=== PATIENT | female | born 1965 | race Caucasian/White ===

== ENCOUNTER 2017-07-13 22:00 | Emergency (ER) | payer BC, MEDICARE ==
[2017-07-13] MEDS ORDERED: Ketorolac 60 MG/2 ML SDV IM ONE (23:16)
[2017-07-13] MEDS ORDERED: Amoxicillin 500 MG Cap PO ONE (23:46)
--- NOTE | 2017-07-13 23:52 | EDM.PDOC ---
ED HPI GENERAL MEDICAL PROBLEM - General Chief Complaint: ENT Problem Stated Complaint: TOOTHACHE Time Seen by Provider: 07/13/17 22:20 Source of Information: Reports: Patient History Limitations: Reports: No Limitations - History of Present Illness INITIAL COMMENTS - FREE TEXT/NARRATIVE: c/o tooth pain pt has had problems with tooth #20 for 17y and had surgery and fillings on it many times last saw dentist 2y ago, has dental insurance, just moved to area, works at [employer] has had pain for 2d, felt lightheaded on way to work this evening and came here works 3rd shift daughter is a nurse in [employer] no f/c/d increase swelling of cheek x 2d, not taken meds left upper tooth Pain Score (Numeric/FACES): 7 - Related Data Allergies Allergy/AdvReac Type Severity Reaction Status Date / Time No Known Allergies Allergy Verified 07/13/17 23:20 Home Meds: Home Meds Amoxicillin 500 mg PO TID #21 tab 07/13/17 [Rx] Memantine [Namenda] 50 mg PO DAILY 07/13/17 [History] Sertraline [Zoloft] 100 mg PO DAILY 07/13/17 [History] Past Medical History Neurological History: Reports: Other (See Below) Other Neuro History: patient takes memantine. Psychiatric History: Reports: Depression Social & Family History - Family History Family Medical History: Noncontributory - Tobacco Use Smoking Status *Q: Current Every Day Smoker Years of Tobacco use: 30 Packs/Tins Daily: 0.5 Used Tobacco, but Quit: Yes Month/Year Tobacco Last Used: yesterday - Caffeine Use Caffeine Use: Reports: Coffee, Soda - Alcohol Use Days Per Week of Alcohol Use: 2 Number of Drinks Per Day: 2 Total Drinks Per Week: 4 - Recreational Drug Use Recreational Drug Use: No ED ROS ENT - Review of Systems Review Of Systems: See Below Constitutional: Reports: No Symptoms HEENT: Reports: Dental Pain Respiratory: Reports: No Symptoms Endocrine: Reports: No Symptoms GI/Abdominal: Reports: No Symptoms : Reports: No Symptoms Musculoskeletal: Reports: No Symptoms Skin: Reports: No Symptoms Neurological: Reports: No Symptoms Psychiatric: Reports: No Symptoms Hematologic/Lymphatic: Reports: No Symptoms Immunologic: Reports: No Symptoms ED EXAM, ENT - Physical Exam Exam: See Below Exam Limited By: No Limitations General Appearance: Alert, WD/WN, Mild Distress Nose: Normal Inspection, Normal Mucousa, No Blood Mouth/Throat: Other (teeth #20 and 21 are both loose, filled cares, both sensitive to touch as is the adjacent gingiva, no red or swell of gingiva, mild swell of cheek, no LNs, teeth do not look like they can be salvaged, good 3 mm of motion apiece) Course - Vital Signs Last Recorded V/S: Last Vital Signs Temp 36.9 C 07/13/17 22:30 Pulse 68 07/13/17 22:30 Resp 18 07/13/17 22:30 BP 110/65 07/13/17 22:30 Pulse Ox 97 07/13/17 22:30 - Orders/Labs/Meds Orders: Active Orders 24 hr Category Date Time Status Amoxicillin [Amoxil] Med 07/13/17 23:46 Once 500 mg PO ONETIME ONE Meds: Medications Discontinued Medications Generic Name Dose Route Start Last Admin Trade Name Freq PRN Reason Stop Dose Admin Ketorolac Tromethamine 60 mg 07/13/17 23:16 07/13/17 23:24 Toradol IM 07/13/17 23:17 60 mg ONETIME ONE Administration Departure - Departure Time of Disposition: 23:51 Disposition: Home, Self-Care 01 Condition: Good Clinical Impression: Dental abscess, Loosening of tooth - Discharge Information Prescriptions: Amoxicillin 500 mg PO TID #21 tab Instructions: Dental Abscess Referrals: PCP,None [Primary Care Provider] - Forms: ED Department Discharge, ED Return to Work/School Form Additional Instructions: For infection, take amoxicillin 500 mg 1 tab 3 times a day for 7 days. For pain and inflammation, take ibuprofen 200 mg 3 tabs and acetaminophen 500 mg 2 tabs 4 times a day for several days. Eat and drink soft, cool food and liquids. Avoid chewing on the left side. See a dentist within the next week. Return to ED if you feel worse. No work tonight. - My Orders Last 24 Hours: My Active Orders 07/13/17 23:46 Amoxicillin [Amoxil] 500 mg PO ONETIME ONE - Assessment/Plan Last 24 Hours: My Active Orders 07/13/17 23:46 Amoxicillin [Amoxil] 500 mg PO ONETIME ONE
== END 2017-07-14 00:10 | disposition home or self-care (01) ==
LOC: FB.ED 22:00
DX: K04.7 Periapical abscess without sinus (principal); F17.210 Nicotine dependence, cigarettes, uncomplicated
CPT/HCPCS: 96372; 99282; A9270; J1885

== ENCOUNTER 2017-11-01 03:42 | Emergency (ER) | payer BC ==
--- NOTE | 2017-11-01 04:12 | EDM.PDOC ---
ED HPI GENERAL MEDICAL PROBLEM - General Chief Complaint: General Stated Complaint: Chills, Diarrhea, Headache Time Seen by Provider: 11/01/17 04:00 Source of Information: Reports: Patient History Limitations: Reports: No Limitations - History of Present Illness INITIAL COMMENTS - FREE TEXT/NARRATIVE: Maria Elena is employed at [employer] and experienced some chills, malaise, and an episode of diarrhea about an hour ago. There was no reported BRB or mucous in the stool. She still feels weak, and was advised to come to the ED for medical evaluation. There is no fever, sweats, nausea or vomiting, and no further diarrhea. She had store bought bow tie salad and some chicken during breaks overnight. There is no other reported exposure. - Related Data Allergies Allergy/AdvReac Type Severity Reaction Status Date / Time .Pain medication Allergy Nausea Uncoded 11/01/17 04:00 Home Meds: Home Meds Sertraline [Zoloft] 100 mg PO DAILY 07/13/17 [History] Terbinafine HCl [Terbinafine] 250 mg PO DAILY 11/01/17 [History] Past Medical History Neurological History: Reports: Other (See Below) Other Neuro History: patient takes memantine. Psychiatric History: Reports: Depression Social & Family History - Family History Family Medical History: Noncontributory - Tobacco Use Smoking Status *Q: Current Every Day Smoker Years of Tobacco use: 35 Packs/Tins Daily: 1 - Caffeine Use Caffeine Use: Reports: Coffee, Soda - Alcohol Use Days Per Week of Alcohol Use: 3 Number of Drinks Per Day: 4 Total Drinks Per Week: 12 - Recreational Drug Use Recreational Drug Use: No Other Recreational Drug Type: Patient denies recreational drug use. ED ROS GENERAL - Review of Systems Review Of Systems: See Below Constitutional: Reports: Malaise, Weakness, Decreased Appetite HEENT: Reports: No Symptoms Respiratory: Reports: No Symptoms Cardiovascular: Reports: No Symptoms Endocrine: Reports: No Symptoms GI/Abdominal: Reports: Diarrhea : Reports: No Symptoms Musculoskeletal: Reports: No Symptoms Skin: Reports: No Symptoms Neurological: Reports: Weakness Psychiatric: Reports: No Symptoms Hematologic/Lymphatic: Reports: No Symptoms Immunologic: Reports: No Symptoms ED EXAM, GENERAL - Physical Exam Exam: See Below Exam Limited By: No Limitations General Appearance: Alert, WD/WN, No Apparent Distress Eye Exam: Bilateral Eye: EOMI, Normal Inspection, PERRL Ears: Normal External Exam Nose: Normal Inspection Throat/Mouth: Normal Inspection, Normal Oropharynx, Normal Voice Head: Normocephalic Neck: Normal Inspection, Supple, Non-Tender Respiratory/Chest: Lungs Clear, Normal Breath Sounds, Chest Non-Tender Cardiovascular: Regular Rate, Rhythm, No Murmur GI/Abdominal: Normal Bowel Sounds, Soft, Non-Tender, No Organomegaly, No Distention, No Mass (Female) Exam: Deferred Rectal (Female) Exam: Deferred Back Exam: Normal Inspection Extremities: Normal Inspection Neurological: Alert, Oriented, CN II-XII Intact, Normal Cognition, Normal Gait, No Motor/Sensory Deficits, Sensory/Motor Deficit Psychiatric: Normal Affect Skin Exam: Warm, Dry, Intact, Normal Color, No Rash Lymphatic: No Adenopathy Course - Vital Signs Text/Narrative:: Maria Elena remained stable at the [facility] ED. The CBC was WNL. Last Recorded V/S: Last Vital Signs Temp 36.7 C 11/01/17 03:45 Pulse 73 11/01/17 03:45 Resp 18 11/01/17 03:45 BP 102/64 11/01/17 03:45 Pulse Ox 98 11/01/17 03:45 - Orders/Labs/Meds Labs: Laboratory Tests 11/01/17 Range/Units 04:20 WBC 8.4 (4.5-12.0) X10-3/uL RBC 3.51 (3.23-5.20) x10(6)uL Hgb 12.0 (11.5-15.5) g/dL Hct 34.6 (30.0-51.3) % MCV 98.7 H (80-96) fL MCH 34.2 H (27.7-33.6) pg MCHC 34.6 (32.2-35.4) g/dL RDW 12.5 (11.5-15.5) % Plt Count 207 (125-369) X10(3)uL MPV 8.3 (7.4-10.4) fL Neut % (Auto) 54.8 (46-82) % Lymph % (Auto) 33.2 (13-37) % [place] % (Auto) 7.5 (4-12) % Eos % (Auto) 4 (1.0-5.0) % Baso % (Auto) 1 (0-2) % Neut # (Auto) 4.6 (1.6-8.3) # Lymph # (Auto) 2.8 (0.6-5.0) # [place] # (Auto) 0.6 (0.0-1.3) # Eos # (Auto) 0.3 (0.0-0.8) # Baso # (Auto) 0.1 (0.0-0.2) # Departure - Departure Time of Disposition: 04:47 Disposition: Home, Self-Care 01 Condition: Fair Clinical Impression: Gastroenteritis - Discharge Information *PRESCRIPTION DRUG MONITORING PROGRAM REVIEWED*: Not Applicable *COPY OF PRESCRIPTION DRUG MONITORING REPORT IN PATIENT MAYDA: Not Applicable Referrals: PCP,None [Primary Care Provider] - Forms: ED Department Discharge - Problem List & Annotations (1) Gastroenteritis SNOMED Code(s): 09967431 Code(s): K52.9 - NONINFECTIVE GASTROENTERITIS AND COLITIS, UNSPECIFIED Status: Acute Current Visit: Yes Annotation/Comment:: Monitor temps, hydration, and sxs cares. A note for employer was provided. - Problem List Review Problem List Initiated/Reviewed/Updated: Yes - Assessment/Plan Plan: Follow up with PCP if needed.
== END 2017-11-01 05:00 | disposition home or self-care (01) ==
LOC: FB.ED 03:42
DX: K52.9 Noninfective gastroenteritis and colitis, unspecified (principal); F17.210 Nicotine dependence, cigarettes, uncomplicated; Z79.899 Other long term (current) drug therapy
CPT/HCPCS: 36415; 85025; 99283

== ENCOUNTER 2018-10-03 18:12 | Emergency (ER) | payer BC ==
--- NOTE | 2018-10-03 19:16 | EDM.PDOC ---
ED HPI GENERAL MEDICAL PROBLEM - General Chief Complaint: Skin Complaint Stated Complaint: INFLAMATION OF R HAND Time Seen by Provider: 10/03/18 18:45 - History of Present Illness INITIAL COMMENTS - FREE TEXT/NARRATIVE: patient here with concern for possible wrist infection. She has been following with a hand surgeon in [place] after carpal tunnel surgery, with subsequent development of infection and requiring a washout and IV antibiotics. She has had increasing pain and swelling today and is wondering what to do. No fever, chills, sweats, although occasionally feeling flushed. Appointment with her surgeon on . right wrist Pain Score (Numeric/FACES): 6 - Related Data Allergies Allergy/AdvReac Type Severity Reaction Status Date / Time .Pain medication Allergy Nausea Uncoded 11/01/17 04:00 Home Meds: Home Meds Sertraline [Zoloft] 100 mg PO DAILY 07/13/17 [History] Terbinafine HCl [Terbinafine] 250 mg PO DAILY 11/01/17 [History] Past Medical History Respiratory History: Reports: Other (See Below) Other Respiratory History: States she has a chronic cough and seasonal hayfever. Neurological History: Reports: Other (See Below) Other Neuro History: patient takes memantine. Psychiatric History: Reports: Depression Dermatologic History: Reports: Other (See Below) Other Dermatologic History: Takes medication for toe fungus. - Past Surgical History Neurological Surgical History: Reports: Other (See Below) Other Neurological Surgeries/Procedures: Hx neck surgery. Social & Family History - Family History Family Medical History: Noncontributory - Tobacco Use Smoking Status *Q: Current Every Day Smoker Years of Tobacco use: 40 Packs/Tins Daily: 1 - Caffeine Use Caffeine Use: Reports: Coffee, Soda ED ROS GENERAL - Review of Systems Review Of Systems: ROS reveals no pertinent complaints other than HPI. ED EXAM, SKIN/RASH Exam: See Below Text/Narrative:: General: alert, pleasant no acute distress Hand: left wrist appears normal. Right wrist has swelling, firm area around the scar of her carpal surgery. No discharge or fluctuance. Hand is neurovascularly intact, and she has pain with flexion of her fingers but minimal limitation. No red streaking. Course - Vital Signs Text/Narrative:: Patient evaluated, offered option of workup here such as labs, possible phone contact with surgeon, could potentially do rocephin to cover overnight if they requested and they could see her tomorrow. Would not admit here as she would like to continue working with same office. After a lengthy discussion of various options, patient decided she would prefer to go to [facility], and plans to be evaluated in ER there. Declined any further needs here and is grateful for advice. She will drive herself. Last Recorded V/S: Last Vital Signs Temp 36.8 C 10/03/18 18:12 Pulse 87 10/03/18 18:12 Resp 17 10/03/18 18:12 BP 99/56 L 10/03/18 18:12 Pulse Ox 96 10/03/18 18:12 Departure - Departure Time of Disposition: 19:16 Disposition: Home, Self-Care 01 Clinical Impression: Abscess, Post-operative complication - Discharge Information *PRESCRIPTION DRUG MONITORING PROGRAM REVIEWED*: Not Applicable *COPY OF PRESCRIPTION DRUG MONITORING REPORT IN PATIENT MAYDA: Not Applicable Instructions: Skin Abscess Referrals: PCP,None [Primary Care Provider] - Forms: ED Department Discharge Additional Instructions: discussed at length and patient decided to go to [facility] rather than wait til morning. All questions answered.
== END 2018-10-03 18:56 | disposition home or self-care (01) ==
LOC: FB.ED 18:12
DX: T81.49XA Infection following a procedure, other surgical site, initial encounter (principal); L02.413 Cutaneous abscess of right upper limb; F32.9 Major depressive disorder, single episode, unspecified; F17.210 Nicotine dependence, cigarettes, uncomplicated; Z79.899 Other long term (current) drug therapy
CPT/HCPCS: 99282